=== PATIENT | male | born 1935 | race Caucasian/White ===

== ENCOUNTER 2019-02-12 20:45 | Inpatient (IN) ==
[2019-02-12] MEDS ORDERED: Acetaminophen 325 MG TABLET PO PRN (23:38)
[2019-02-12] MEDS ORDERED: Melatonin 3 MG TABLET PO PRN (23:40)
[2019-02-12] MEDS ORDERED: Mag Hydrox/Al Hydrox/Simeth 30 ML UDC PO PRN (23:40)
[2019-02-12] MEDS ORDERED: *HR* Dextrose 50 % in Water (Syg) 50 ML SYRINGE IVP PRN (23:55)
[2019-02-12] MEDS ORDERED: Dextrose Gel 15 GM/37.5 ML TUBE PO PRN ×2 (23:55)
[2019-02-12] MEDS ORDERED: D5% in Water 1,000 ML IVC PRN (23:55)
[2019-02-13 05:39] LABS: Basophils # 0.1 K/mcL (0.0-0.2); Basophils % 0.7 %; Eosinophils # 0.3 K/mcL (0.0-0.6); Eosinophils % 3.8 %; Hematocrit 27.1 % (37.5-50.1); Hemoglobin 8.8 g/dL (12.9-16.9); Immature Granulocytes % 0.4 % (0-4); Lymphocytes # 0.9 K/mcL (0.6-4.6); Lymphocytes % 11.4 %; Mean Corpuscular HGB Conc 32.5 g/dL (31.6-35.5); Mean Corpuscular Hemoglobin 30.2 pg (28.0-33.3); Mean Corpuscular Volume 93.1 fL (83.0-100.0); Mean Platelet Volume 10.5 fL (9.4-12.4); Monocytes # 0.5 K/mcL (0.0-1.3); Monocytes % 6.4 %; Neutrophils # 5.9 K/mcL (1.6-8.9); Platelet Count 220 K/mcL (140-400); Red Blood Count 2.91 M/mcL (4.19-5.50); Red Cell Distribution Width 15.1 % (11.5-14.5); Segmented Neutrophils % 77.3 %; White Blood Count 7.6 K/mcL (4.3-11.1)
[2019-02-13 05:55] LABS: Alanine Aminotransferase 12 Units/L (7-52); Albumin/Globulin Ratio 1.2 (1.1-2.2); Alkaline Phosphatase 82 Units/L (34-104); Aspartate Amino Transferase 15 Units/L (13-39); BUN/Creatinine Ratio 23 (6-26); Bilirubin,Total 0.5 mg/dL (0.3-1.0); Blood Urea Nitrogen 18 mg/dL (8-23); Calcium 8.5 mg/dL (8.6-10.3); Carbon Dioxide 28 mEq/L (23-29); Chloride 97 mEq/L (98-107); Globulin 2.6 g/dL (2.4-3.5); Glucose 208 mg/dL (70-105); Magnesium 1.7 mg/dL (1.6-2.6); Osmolality,Calculated 280 (280-300); Potassium 4.3 mEq/L (3.5-5.1); Sodium 131 mEq/L (136-145); Total Protein 5.6 g/dL (6.4-8.9); eGFR For African Americans > 60 (> 60); eGFR For Non-African Americans > 60 (> 60)
[2019-02-13 06:24] LABS: Bilirubin,Urine Negative (Negative); Blood,Urine Moderate (Negative); Clarity,Urine Clear (Clear); Color,Urine Yellow (Yellow); Glucose,Urine (UA) Normal (Normal); Ketones,Urine Negative (Negative); Leukocyte Esterase,Urine Moderate (Negative); Nitrite,Urine Negative (Negative); PH,Urine 7.5 pH Units (5.0-8.0); Protein,Urine 30 mg/dL (Neg-Trace); Specific Gravity,Urine 1.015 (1.010-1.025)
[2019-02-13 06:26] LABS: WBC,Urine 15-30 per hpf (0-3)
[2019-02-13 06:27] LABS: Bacteria,Urine Moderate per hpf (None-Few)
[2019-02-13] MEDS ORDERED: *HR* Enoxaparin 40 MG/0.4 ML SYRINGE SQ SCH (07:00)
[2019-02-13] MEDS: Insulin LISPRO 300 UNITS/3 ML VIAL SQ SCH ×4 (07:45→12:08)
[2019-02-13] MEDS ORDERED: Vitamin E 200 UNIT (90MG) CAPSULE PO SCH (09:00)
[2019-02-13] MEDS ORDERED: Furosemide 20 MG TABLET PO SCH (09:00)
[2019-02-13] MEDS ORDERED: Spironolactone 25 MG TABLET PO SCH (09:00)
--- NOTE | 2019-02-13 11:00 | Internal Med History&Physical ---
Date of Encounter: 02/13/19 Time of Encounter: 10:51 Assessment and Plan (1) Intracranial bleed Current visit: Yes Status: Acute Patient is a new admission from [facility] where he surgically treated for a intracranial bleed. Patient was transferred to this facility for further rehabilitation due to generalized weakness secondary from his surgical recovery. Currently shows no motor deficit but has been noted to have some trouble speech and word searching during his exam this morning. We will obtain a CT scan for evaluation as patient has had a recent history of rebleed during his hospitalization. No other acute neurological deficits noted on exam. Vital signs are stable. Glucose 150. We will continue with current plan of care once his CT scan is evaluated. (2) HTN (hypertension) Current visit: Yes Status: Acute Vital signs have been stable. We will continue with a goal of maintaining systolic blood pressure less than 160 due to his intracranial bleed. Continue with current medications. Qualifiers: Hypertension type: essential hypertension Qualified Code(s): I10 - Essential (primary) hypertension (3) Diabetes Current visit: Yes Status: Acute No acute issues at this time. Patient's glucose has been fairly well- controlled. We will continue with current medications and continue to monitor glucose 2 fingersticks. Qualifiers: Diabetes mellitus type: type 2 Diabetes mellitus terminal gauger supervisor insulin use: with terminal gauger supervisor use Diabetes mellitus complication status: with circulatory complication Diabetes mellitus complication detail: with other circulatory complications Qualified Code(s): E11.59 - Type 2 diabetes mellitus with other circulatory complications; Z79.4 - MCFP (current) use of insulin (4) CAD (coronary artery disease) Current visit: Yes Status: Acute No acute issues. Patient is without complaints palpitations or chest discomforts. Patient does have a history of coronary artery bypass and placement of a AICD. We will continue with current medications Qualifiers: Coronary Disease-Associated Artery/Lesion type: [place] artery [place] vs. transplanted heart: [place] heart Associated angina: without angina Qualified Code(s): I25.10 - Atherosclerotic heart disease of [place] coronary artery without angina pectoris (5) Afib Current visit: Yes Status: Acute No acute issues at this time. Patient's ventricular rate has been well controlled less than 100. We will continue with current medications. Qualifiers: Atrial fibrillation type: unspecified Qualified Code(s): I48.91 - Unspecified atrial fibrillation Internal Medicine - H&P: HPI Chief complaint: Intracranial bleed Admitted From: Hospital to Hospital Transfer Plans for Post Hospital Care: Home History of present illness: Mr. Zamudio is a 84 year old male, who was transferred to this facility from [facility] after being treated for an intracranial bleed. Patient is a poor historian so most of her is history has been obtained to medical records. 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 Preoperatively patient was reported to have been on Coumadin for both atrial fibrillation and for a mitral valve replacement. Patient progressed well during recovery of his intracranial bleed with medical records showing no focal motor deficits or dysphasia. Patient continues to have some word searching during conversation and this morning shows to be slightly confused when answe ring questions. Later on exam patient noted to have increased aphasia with his sentences become a more garbled. Confusion with been oriented to name only. Patient able to answer most simple questions but having difficulty with more complex questioning. Patient follows all commands. Was transferred to this facility for further rehabilitation due to weakness secondary to his surgical recovery. Patient has a history of CHF, atrial fibrillation, diabetes, placement of a ICD, mitral valve replacement, AAA repair and hypertension. Past Med Surg Social Fam HX - Past Medical History Medical history: aortic aneurysm, atrial fibrillation, CHF, coronary artery disease, diabetes, hyperlipidemia, hypertension, myocardial infarction, thyroid disease, valvular heart disease Additional medical history: a flutter, diverticulitis, anemia, chronic diarrhea, xiomara, - Past Surgical History Surgical History: coronary bypass (CABG), pacemaker Additional surgical history: AAA repair, - Social History Smoking Status: Unknown if ever smoked - Family History Mother Living Status: Internal Medicine - H&P: Meds Atorvastatin [Lipitor] 40 mg PO HS 02/12/19 [History] Ca/D3/Mag Ox/Zinc/Pocket Closer/Jaime/Bor [Calcium 600+D3 Plus Caplet] 1 each PO DAILY 02/12/19 [History] Ferrous Gluconate 324 mg PO DAILY 02/12/19 [History] Furosemide [Lasix] 20 mg PO DAILY 02/12/19 [History] Insulin Glargine [Lantus] 25 unit SQ HS 02/12/19 [History] Levothyroxine [Synthroid] 112 mcg PO 0630 02/12/19 [History] Lisinopril 2.5 mg PO DAILY 02/12/19 [History] Magnesium Oxide [Mag-Oxide Magnesium] 400 mg PO DAILY 02/12/19 [History] Melatonin 6 mg PO HS 02/12/19 [History] Sotalol [Betapace] 120 mg PO Q12HR 02/12/19 [History] Spironolactone [Aldactone] 25 mg PO DAILY 02/12/19 [History] Vitamin E (Dl,Tocopheryl Acet) [Vitamin E] 1,000 unit PO DAILY 02/12/19 [History] Allergy/AdvReac Type Severity Reaction Status Date / Time codeine Allergy See Verified 02/12/19 21:27 Comments menthol [From Icy Hot] Allergy See Verified 02/12/19 21:27 Comments methyl salicylate Allergy See Verified 02/12/19 21:27 [From Icy Hot] Comments NSAIDS (Non-Steroidal Allergy See Verified 02/12/19 21:27 Anti-Inflamma Comments prednisone Allergy See Verified 02/12/19 21:27 Comments rivaroxaban [From Xarelto] Allergy See Verified 02/12/19 21:27 Comments Warfarin [From Coumadin] Allergy See Verified 02/12/19 21:27 Comments All Systems PM: A 10-system review of systems was performed and is negative for pertinent findings except as documented above in the HPI. - Constitutional Constitutional: as per HPI, no chills, no fever(s), no night sweats - EENT Eyes: as per HPI, no change in vision, no discharge, no pain, no photophobia Ears: as per HPI, no ear discharge, no ear pain, no tinnitus Nose, mouth and throat: as per HPI, no dysphagia, no nasal discharge, no neck pain, no sore throat - Breasts Breasts: as per HPI - Cardiovascular Cardiovascular ROS IM: as per HPI, no chest pain, no diaphoresis, no dyspnea, no lightheadedness, no palpitations, no syncope - Respiratory Respiratory: as per HPI, no cough, no dyspnea, no wheezing, no excessive phlegm production - Gastrointestinal Gastrointestinal: as per HPI, no abdominal pain, no diarrhea, no hematemesis, no hematochezia, no melena, no nausea, no vomiting - Genitourinary Genitourinary ROS male: as per HPI - Musculoskeletal Musculoskeletal ROS IM: as per HPI, no numbness, no tingling - Integumentary Integumentary IM: as per HPI, no rash, no unusual bruising - Neurological Neurological ROS: as per HPI, no confusion, no convulsions, no focal weakness, no numbness, no tingling, no tremor(s) - Psychiatric Psychiatric: as per HPI - Endocrine Endocrine IM: as per HPI - Hematologic/Lymphatic Hematologic/Lymphatic: as per HPI, no easy bruising - Allergic/Immunologic Allergic/Immunologic: as per HPI - Constitutional Vitals: Temp Pulse Resp BP Pulse Ox 98.3 F 74 20 130/68 97 02/13/19 06:57 02/13/19 06:57 02/13/19 06:57 02/13/19 06:57 02/13/19 06:57 General appearance: Present: A&O X 2, pleasant - Head Head exam: Present: atraumatic, normocephalic Additional comments: Patient with a left scalp staple line from craniectomy surgical site appears healthy and intact. - Eye Eye exam: Present: PERRL, conjuntiva pink, sclera anicteric Pupils: Present: PERRL - Neck Neck exam general surgery: Present: supple, trachea midline. Absent: lymphadenopathy - Respiratory Respiratory exam: Present: decreased breath sounds, CTAB. Absent: accessory muscle use, rales, rhonchi, wheezes - Cardiovascular Cardiovascular exam: Present: irregular rhythm, RRR, +S1, +S2, systolic murmur. Absent: diastolic murmur, gallop, rubs - GI/Abdominal GI/Abdominal exam: Present: normal bowel sounds, soft, no peritoneal signs. Absent: distended, tenderness - Extremities Exam Extremities exam: Present: warm, radial pulses palpable and symmetrical. Absent: calf tenderness, cyanotic, pedal edema - Neurological Exam Neurological exam: Present: CN II-XII intact, no focal deficits. Absent: pronater drift, facial droop, speech deficit Additional comments: Patient oriented to name. No motor deficits noted on exam. Patient with some difficulty on following commands. Able to answer simple questions but unable to answer any complex questions with complex sentences. No drift. - Skin Skin exam: Present: dry, intact Internal Med - H&P Results - Labs CBC & Chem 7: 02/13/19 05:20 02/13/19 05:20 Labs: Short CBC 02/13/19 Range/Units 05:20 WBC 7.6 (4.3-11.1) K/mcL Hgb 8.8 L (12.9-16.9) g/dL Hct 27.1 L (37.5-50.1) % Plt Count 220 (140-400) K/mcL Neutrophils # 5.9 (1.6-8.9) K/mcL BMP 02/13/19 05:20 Sodium 131 L Potassium 4.3 Chloride 97 L Carbon Dioxide 28 BUN 18 Creatinine 0.78 Glucose 208 H Calcium 8.5 L Liver Function 02/13/19 Range/Units 05:20 Total Bilirubin 0.5 (0.3-1.0) mg/dL AST 15 (13-39) Units/L ALT 12 (7-52) Units/L Alkaline Phosphatase 82 (34-104) Units/L Albumin 3.0 L (3.5-5.7) g/dL Urine 02/13/19 Range/Units 05:30 Urine Color Yellow (Yellow) Urine Clarity Clear (Clear) Urine pH 7.5 (5.0-8.0) pH Units Ur Specific [place] 1.015 (1.010-1.025) Urine Protein 30 H (Neg-Trace) mg/dL Urine Glucose (UA) Normal (Normal) mg/dL
--- NOTE | 2019-02-13 12:29 | Discharge Summary ---
Orders not resulted at time of discharge: Pending orders 02/13/19 05:30 Culture,Urine [RM] Routine Date of Encounter: 02/13/19 Time of Encounter: 12:26 - Discharge Diagnosis (1) Intracranial bleed Priority: Primary Status: Acute Comments: Patient with a recent surgical treatment for a subdural/epidural bleed. Presents with a left craniectomy. Patient showed no motor deficits but over the period of the last 24 hours has shown increased confusion and increased dysarthria. Noted word searching when attempting to answer questions. Difficulty following verbal commands but able to follow simple commands by demonstration. CT scan was obtained with radiology stating patient shows increased mass effect with his midline shipped up to 1 cm when compared to previous postoperative scans that were provided. Patient will be returned to [facility] for reevaluation by neurosurgery. Patient has been made nothing by mouth and will hold any anticoagulation. Patient was on Love nox at time of discharge (2) HTN (hypertension) Priority: Secondary Status: Acute Comments: Issues vital signs remained stable less than 160 systolically. We will continue with current medications Qualifiers: Hypertension type: essential hypertension Qualified Code(s): I10 - Essential (primary) hypertension (3) Diabetes Priority: Secondary Status: Acute Comments: Glucose has been well controlled during his stay of facility. With his most recent glucose at 150. We will continue with current medications until discharged Qualifiers: Diabetes mellitus type: type 2 Diabetes mellitus fci insulin use: with fci use Diabetes mellitus complication status: with circulatory complication Diabetes mellitus complication detail: with other circulatory complications Qualified Code(s): E11.59 - Type 2 diabetes mellitus with other circulatory complications; Z79.4 - intermediate designer (current) use of insulin (4) CAD (coronary artery disease) Priority: Secondary Status: Acute Comments: Extensive cardiac history. No acute issues during his stay. Continue with current medications until discharge Qualifiers: Coronary Disease-Associated Artery/Lesion type: [place] artery [place] vs. transplanted heart: [place] heart Associated angina: without angina Qualified Code(s): I25.10 - Atherosclerotic heart disease of [place] coronary artery without angina pectoris (5) Afib Priority: Secondary Status: Acute Comments: Heart rate remains irregular but with a controlled rate less than 100. Qualifiers: Atrial fibrillation type: unspecified Qualified Code(s): I48.91 - Unspecified atrial fibrillation Hospital course: Mr. Zamudio is a 84 year old male, who was transferred to this facility from [facility] after being treated for an intracranial bleed. Patient is a poor historian so most of her is history has been obtained to medical records. 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 Preoperatively patient was reported to have been on Coumadin for both atrial fibrillation and for a mitral valve replacement. He was noted to be on prophylactic dosing of Lovenox at time of discharge Patient progressed well during recovery of his intracranial bleed with medical records showing no focal motor deficits or dysphasia. Patient continues to have some word searching during conversation and this morning shows to be slightly confused when answering questions. Later on exam patient noted to have increased aphasia with his sentences become a more garbled. Confusion with been oriented to name only. Patient able to answer most simple questions but having difficulty with more complex questioning. Patient follows all commands. Was transferred to this facility for further rehabilitation due to weakness secondary to his surgical recovery. Patient has a history of CHF, atrial fibrillation, diabetes, placement of a ICD, mitral valve replacement, AAA repair and hypertension. CT scan was obtained which showed redemonstration of mass effect 1 cm midline shift when radiology compared to his postoperative film provided. Patient being prepared for transfer back to [facility] for further evaluation by neurosurgery. Patient currently is nothing by mouth. - Time Spent with Patient Total time spent providing and/or coordinating discharge services: - Discharge Medications Prescriptions: No Action Spironolactone [Aldactone] 25 mg PO DAILY Sotalol [Betapace] 120 mg PO Q12HR Melatonin 6 mg PO HS Magnesium Oxide [Mag-Oxide Magnesium] 400 mg PO DAILY Levothyroxine [Synthroid] 112 mcg PO 0630 Insulin Glargine [Lantus] 25 unit SQ HS Furosemide [Lasix] 20 mg PO DAILY Atorvastatin [Lipitor] 40 mg PO HS Vitamin E (Dl,Tocopheryl Acet) [Vitamin E] 1,000 unit PO DAILY Lisinopril 2.5 mg PO DAILY Ferrous Gluconate 324 mg PO DAILY Ca/D3/Mag Ox/Zinc/Toll Test Worker/Jaime/Bor [Calcium 600+D3 Plus Caplet] 1 each PO DAILY Home Medications: Atorvastatin [Lipitor] 40 mg PO HS 02/12/19 [History] Ca/D3/Mag Ox/Zinc/Toll Test Worker/Jaime/Bor [Calcium 600+D3 Plus Caplet] 1 each PO DAILY 02/12/19 [History] Ferrous Gluconate 324 mg PO DAILY 02/12/19 [History] Furosemide [Lasix] 20 mg PO DAILY 02/12/19 [History] Insulin Glargine [Lantus] 25 unit SQ HS 02/12/19 [History] Levothyroxine [Synthroid] 112 mcg PO 0630 02/12/19 [History] Lisinopril 2.5 mg PO DAILY 02/12/19 [History] Magnesium Oxide [Mag-Oxide Magnesium] 400 mg PO DAILY 02/12/19 [History] Melatonin 6 mg PO HS 02/12/19 [History] Sotalol [Betapace] 120 mg PO Q12HR 02/12/19 [History] Spironolactone [Aldactone] 25 mg PO DAILY 02/12/19 [History] Vitamin E (Dl,Tocopheryl Acet) [Vitamin E] 1,000 unit PO DAILY 02/12/19 [History] Allergies/Adverse Reactions: Allergy/AdvReac Type Severity Reaction Status Date / Time codeine Allergy See Verified 02/12/19 21:27 Comments menthol [From Icy Hot] Allergy See Verified 02/12/19 21:27 Comments methyl salicylate Allergy See Verified 02/12/19 21:27 [From Icy Hot] Comments NSAIDS (Non-Steroidal Allergy See Verified 02/12/19 21:27 Anti-Inflamma Comments prednisone Allergy See Verified 02/12/19 21:27 Comments rivaroxaban [From Xarelto] Allergy See Verified 02/12/19 21:27 Comments Warfarin [From Coumadin] Allergy See Verified 02/12/19 21:27 Comments Date of admission: 02/12/19 20:52 Primary care physician: Katey Mccain MD Consults: 02/12/19 23:27 Consult to Occupational Therapy [CONS] Routine Comment: weakness s/p subdural hematoma. Reason for Consult: weakness s/p subdural hematoma. Does patient have active BEDREST order?: No Is patient medically & hemodynamically stable?: Yes Patient assessed for mobility or mobilized this visit?: No Consult to Physical Therapy [CONS] Routine Comment: weakness s/p subdural hematoma. Reason for Consult: s/p subdural hematoma. Does patient have active BEDREST order?: No Is patient medically & hemodynamically stable?: Yes Patient assessed for mobility or mobilized this visit?: No Consult to Recreational Therapy [CONS] Routine Comment: Consult to Hand Binder Stripper [CONS] Routine Reason for SW Consult: d/c planning s/p subdural hematoma. 02/12/19 23:34 Consult to Speech Therapy [CONS] Routine Comment: Evaluate, develop and implement POC Reason for Consult: weakness s/p subdural hematoma. Call Completed: Yes 02/12/19 23:35 Consult to Physical Medicine/Rehab [CONS] Routine Reason for Consult: Please evaluate and manage therapies' guidelines and recommend pathway to reconditioning. Call Completed: Yes Consult to Psychology [CONS] Routine Consulting Provider: Linda Hancock Reason for Consult: Possible depression; adjustment disorder Call Completed: No Discharging clinician: Apolinar Carrillo - Constitutional Vitals: Temp Pulse Resp BP Pulse Ox 98.3 F 74 20 130/68 97 02/13/19 06:57 02/13/19 06:57 02/13/19 06:57 02/13/19 06:57 02/13/19 06:57 General appearance: Present: A&O X 2, pleasant - Patient Status Disposition: Transfer Intermediate Care Fac Condition: Fair Functional capacity at discharge: bed bound Overall status at discharge: patient is not back to baseline - Discharge Instructions Follow Up With: Katey Mccain MD [Primary Care Provider] - - Diet and Activity Activity: increase activity as tolerated Diet: other (Nothing by mouth)
[2019-02-13 13:27] VITALS: BP 112/67
[2019-02-13] MEDS ORDERED: Insulin LISPRO 300 UNITS/3 ML VIAL SQ SCH (21:00)
[2019-02-13] MEDS ORDERED: Melatonin 3 MG TABLET PO SCH (21:00)
[2019-02-13] MEDS ORDERED: Insulin DETEMIR 100 UNIT/ML X5UNITS SQ SCH (21:00)
== END 2019-02-13 13:28 | DRG 950 ==
LOC: INPGRE 20:52